=== PATIENT | male | born 1955 | race Caucasian/White ===

== ENCOUNTER → 2018-01-31 10:20 | Outpatient (CLI) | payer BC, SELFPAY ==
--- NOTE | 2018-01-31 | DI.MRI.S_ITS ---
PROCEDURE: MR CERVICAL SPINE WO CON INDICATIONS: CERVICAL RADICULOPATHY TECHNIQUE: Noncontrast sagittal T1 spin echo and T2 fast spin echo, sagittal STIR, foraminal oblique sagittal T2 fast spin echo, and axial gradient echo or T2 fast spin echo through the cervical spine. COMPARISON: None. FINDINGS: Image quality: Excellent. Alignment and Curvature: Grade 1 anterolisthesis of C3 on C4 and C4 on C5.. Bone Marrow: Marrow demonstrates normal overall signal. There is diffuse endplate degenerative spurring Spinal Cord: Visualized spinal cord has normal size and signal. No cerebellar tonsillar herniation. Paraspinous Soft Tissues: No paravertebral masses. Prevertebral soft tissues are normal in thickness. C2-C3: Bilateral uncovertebral arthropathy and posterior intervening disc osteophyte complex, and facet arthropathy, left greater than right. No canal or right foraminal stenosis. Severe left foraminal narrowing. C3-C4: Bilateral uncovertebral arthropathy and posterior intervening disc osteophyte complex, and bilateral facet disease, also asymmetric left greater than right. Mild canal narrowing. Moderate to severe right and left foraminal stenoses. C4-C5: Bilateral uncovertebral arthropathy and posterior intervening disc osteophyte complex, and bilateral facet disease, left greater than right. Mild canal narrowing. Severe right and severe left foraminal stenosis. C5-C6: Bilateral uncovertebral arthropathy and posterior intervening disc osteophyte complex, and bilateral facet arthropathy. Mild to moderate canal stenosis. Severe bilateral foraminal stenosis. C6-C7: Bilateral uncovertebral arthropathy and posterior intervening disc osteophyte complex, and bilateral facet disease. Moderate to severe canal stenosis. Mild bilateral foraminal narrowing. C7-T1: Normal appearance. IMPRESSION: Diffuse cervical disc degeneration. Multilevel facet arthropathy which is asymmetric (left greater than right) Moderate to severe C6-C7 canal narrowing. Bilateral diffuse foraminal stenoses as detailed above, most pronounced at C2-C3 (left), C3-C4 (bilateral), C4-C5 (bilateral), C5-C6 (bilateral) Grade 1 anterolisthesis of C3 on C4 and C4 on C5. Dictated by: Hakeem Wilks M.D. on 01/31/2018 at 12:22 Approved by: Hakeem Wilks M.D. on 01/31/2018 at 12:30
== END ==
PROVIDERS: Visit Provider Physical Medicine & Rehabilitation Pain Medicine
DX: M54.12 Radiculopathy, cervical region (principal); M50.30 Other cervical disc degeneration, unspecified cervical region; M47.816 Spondylosis without myelopathy or radiculopathy, lumbar region; M48.02 Spinal stenosis, cervical region; M43.12 Spondylolisthesis, cervical region
CPT/HCPCS: 72141

== ENCOUNTER → 2018-03-06 09:55 | Outpatient (CLI) | payer BC, SELFPAY ==
[2018-03-06 11:43] LABS: Alanine Aminotransferase 27 IU/L (21-72); Albumin Globulin Ratio 1.8 (1.0-2.8); Alkaline Phosphatase 53 U/L (38-126); Aspartate Aminotransferase 18 IU/L (17-59); BUN Creatinine Ratio 23.8 (6-22); Bilirubin Total 0.6 mg/dL (0.2-1.3); Blood Urea Nitrogen 19 mg/dL (9-20); Calcium 9.5 mg/dL (8.4-10.2); Carbon Dioxide 27 mmol/L (22-32); Chloride 101 mmol/L (98-107); Cholesterol 138 mg/dL (140-199); Estimated Glomerular Filt Rate > 60.0 mL/min (>60); Globulin 2.2 g/dL (1.7-4.1); Glucose 258 mg/dL (80-110); HDL Cholesterol 44 mg/dL (40-60); HEMOLYSIS < 15 (0-50); LDL Cholesterol Calculated 75 mg/dL (<100); Potassium 4.5 mmol/L (3.4-5.1); Sodium 139 mmol/L (137-145); Total Protein 6.2 g/dL (6.3-8.2); Triglycerides 96 mg/dL (35-150)
[2018-03-06 11:51] LABS: Hemoglobin A1C% w Est Avg Glu 5.8 % (4.0-6.0)
== END ==
PROVIDERS: PCP Internal Medicine; Visit Provider Internal Medicine
DX: E11.9 Type 2 diabetes mellitus without complications (principal); E78.00 Pure hypercholesterolemia, unspecified
CPT/HCPCS: 36415; 80053; 80061; 83036

== ENCOUNTER → 2018-08-30 08:32 | Outpatient (CLI) | payer MEDICARE, BC, SELFPAY ==
[2018-08-30 08:59] LABS: Hemoglobin A1C% w Est Avg Glu 6.3 % (4.0-6.0)
[2018-08-30 09:13] LABS: Creatinine Urine Random 100.9 mg/dL
[2018-08-30 09:19] LABS: BUN Creatinine Ratio 21.1 (6-22); Blood Urea Nitrogen 19 mg/dL (9-20); Calcium 9.7 mg/dL (8.4-10.2); Carbon Dioxide 27 mmol/L (22-32); Chloride 102 mmol/L (98-107); Estimated Glomerular Filt Rate > 60.0 mL/min (>60); Glucose 145 mg/dL (80-110); HEMOLYSIS < 15 (0-50); Potassium 4.9 mmol/L (3.4-5.1); Sodium 139 mmol/L (137-145)
[2018-08-30 09:22] LABS: Microalbumi Creatinin Ratio Ur 5.9 ug/mg CR (<30); Microalbumin Urine Random < 0.6 mg/dL (0-1.6)
== END ==
PROVIDERS: PCP Internal Medicine; Visit Provider Internal Medicine
DX: E11.9 Type 2 diabetes mellitus without complications (principal); I10 Essential (primary) hypertension
CPT/HCPCS: 36415; 80048; 82043; 82570; 83036

== ENCOUNTER → 2018-09-12 11:38 | Outpatient (CLI) | payer MEDICARE, BC, SELFPAY ==
--- NOTE | 2018-09-12 | DI.MRI.S_ITS ---
PROCEDURE: MR ABDOMEN WO/W CON INDICATIONS: Splenic lesion seen on prior CT. TECHNIQUE: Coronal HASTE, axial 2D FLASH in- and [id number]; axial breath-hold T2 FSE. Dynamic axial VIBE during the administration of contrast; post-contrast coronal VIBE or 2D FLASH with fat saturation from the hepatic dome to the iliac crests. Optional diffusion weighted imaging and ADC may be performed. COMPARISON: None available. FINDINGS: Image quality: Excellent. Lung bases: No basal pleural effusions. Heart size is normal. Solid organs: No focal hepatic mass lesions. There is mild cardiovascular shunting along the gallbladder fossa. The gallbladder appears within normal limits without gallstones. Biliary system is non dilated. Pancreas is normal in morphology without pancreatic duct dilatation. No adrenal nodules. Both kidneys demonstrate normal size and enhancement, without hydronephrosis. The spleen is normal in size. Centrally within the spleen, there is an ovoid T2 hyperintense circumscribed lesion measuring approximately 1.8 x 1.8 x 1.8 cm with a small central region of hypointensity suggestive of a central scar. Following contrast administration, there is avid hypervascular enhancement on the arterial phase with persistent hypervascularity in the portal venous and delayed phases. There is progressive centripetal enhancement. Nodes and vessels: No retroperitoneal or mesenteric adenopathy by size criteria. Aorta and inferior vena cava are normal in size. Bowel and peritoneum: Visualized bowel loops are normal in caliber. No free fluid. Bones and soft tissues: No ventral hernias. Bone marrow is normal in overall signal. IMPRESSION: 1. 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 The imaging findings are suggestive of a hemangioma or other probable nonaggressive lesion such as a lymphangioma. Malignant etiologies are less likely. Recommend followup in 6 months to demonstrate stability. This may be performed with ultrasound if clinically indicated. Dictated by: Carlos Wang M.D. on 09/12/2018 at 15:51 Approved by: Carlos Wang M.D. on 09/12/2018 at 16:13
== END ==
PROVIDERS: PCP Internal Medicine; Visit Provider Internal Medicine
DX: D73.89 Other diseases of spleen (principal)
CPT/HCPCS: 74183; A9579